=== PATIENT | female | born 1990 | race Asian ===

== ENCOUNTER 2016-08-28 21:17 | Emergency (ER) | payer MEDICAID ==
[~2016-08-28] VITALS: Ht 180.3 cm; Wt 155.0 kg
[~2016-08-28 21:17] MED LIST: CARV-39 PO; CARV6.252 PO; FURO20TA3 PO; LAMO100T PO; METF100P3 PO; METO25TA35 PO; RISP2TAB PO; TRAZ50TA18 PO; ZIPR40CA3 PO
[2016-08-28] MEDS ORDERED: HYDROmorphone 1 MG/ML, 1ML IM ONE (22:30)
[2016-08-28] MEDS ORDERED: KETOROLAC 30 MG/1 ML IM ONE (22:30)
[2016-08-28] MEDS ORDERED: DEXAMETHASONE 4 MG/ML, 1ML PO ONE (22:30)
[2016-08-28] MEDS ORDERED: DEXAMETHASONE 4 MG/ML, 1ML ONE (22:34)
[2016-08-28] MEDS ORDERED: HYDROmorphone 1 MG/ML, 1ML ONE (22:34)
[2016-08-28] MEDS ORDERED: KETOROLAC 30 MG/1 ML ONE (22:34)
[2016-08-29 01:49] VITALS: BP 138/75
== END 2016-08-29 01:51 | disposition home or self-care (01) ==
LOC: ED 21:56
DX: M54.16 Radiculopathy, lumbar region (principal); M79.604 Pain in right leg; E11.9 Type 2 diabetes mellitus without complications; I10 Essential (primary) hypertension; G43.909 Migraine, unspecified, not intractable, without status migrainosus; E66.9 Obesity, unspecified; Z86.73 Personal history of transient ischemic attack (TIA), and cerebral infarction without residual deficits
CPT/HCPCS: 72110; 73502; 96372; 99284; J1100; J1170; J1885

== ENCOUNTER 2016-12-18 19:04 | Emergency (ER) | payer MEDICAID ==
[~2016-12-18] VITALS: Ht 180.3 cm; Wt 152.2 kg
[2016-12-18 19:05] VITALS: BP 174/117
[2016-12-18] MEDS ORDERED: DEXAMETHASONE 4 MG TABLET PO STA (20:46)
[2016-12-18] MEDS ORDERED: DEXAMETHASONE 4 MG TABLET ONE (20:51)
== END 2016-12-18 21:06 | disposition home or self-care (01) ==
LOC: ED 20:45
DX: J02.8 Acute pharyngitis due to other specified organisms (principal); E11.9 Type 2 diabetes mellitus without complications; F17.210 Nicotine dependence, cigarettes, uncomplicated; F20.0 Paranoid schizophrenia; F43.10 Post-traumatic stress disorder, unspecified; F79 Unspecified intellectual disabilities; I10 Essential (primary) hypertension; M19.90 Unspecified osteoarthritis, unspecified site; Z86.73 Personal history of transient ischemic attack (TIA), and cerebral infarction without residual deficits
CPT/HCPCS: 71020; 99284

== ENCOUNTER 2017-01-09 18:59 | Emergency (ER) | payer MEDICAID ==
[~2017-01-09] VITALS: Ht 180.3 cm; Wt 153.6 kg
[2017-01-09 19:01] VITALS: BP 186/114
== END 2017-01-09 20:17 | disposition home or self-care (01) ==
LOC: ED 20:11
DX: S20.211A Contusion of right front wall of thorax, initial encounter (principal); S50.01XA Contusion of right elbow, initial encounter; F31.9 Bipolar disorder, unspecified; W01.0XXA Fall on same level from slipping, tripping and stumbling without subsequent striking against object, initial encounter; Y93.89 Activity, other specified; Y92.098 Other place in other non-institutional residence as the place of occurrence of the external cause; Y99.8 Other external cause status
CPT/HCPCS: 99284

== ENCOUNTER 2017-01-23 13:24 | Emergency (ER) | payer MEDICAID ==
[~2017-01-23] VITALS: Ht 180.3 cm; Wt 152.6 kg
[2017-01-23] MEDS ORDERED: CARV-39 PO (14:01)
[2017-01-23 14:24] LABS: HEMATOCRIT 43.4 % (34.6-47.8); HEMOGLOBIN 14.4 g/dL (11.7-16.4)
[2017-01-23 14:33] LABS: BLOOD UREA NITROGEN 10 mg/dL (7-18)
[2017-01-23 14:39] LABS: IS PT STATUS REG ER OR PRE ER? YES
[2017-01-23 14:42] VITALS: BP 135/78
== END 2017-01-23 14:52 | disposition home or self-care (01) ==
LOC: ED 14:26
DX: R06.00 Dyspnea, unspecified (principal); E11.9 Type 2 diabetes mellitus without complications; I10 Essential (primary) hypertension; G43.909 Migraine, unspecified, not intractable, without status migrainosus; F43.10 Post-traumatic stress disorder, unspecified
CPT/HCPCS: 36415; 71010; 80048; 82040; 83880; 84484; 85025; 93005; 99285

== ENCOUNTER 2017-01-31 11:26 | Emergency (ER) | payer MEDICAID ==
[~2017-01-31] VITALS: Ht 180.3 cm; Wt 145.5 kg
[2017-01-31] MEDS ORDERED: GABA300C10 PO (11:37)
[2017-01-31 11:57] LABS: HEMATOCRIT 42.6 % (34.6-47.8); HEMOGLOBIN 14.5 g/dL (11.7-16.4); WHITE BLOOD COUNT 12.8 x10^3/uL (3.4-10)
[2017-01-31 12:09] LABS: ASPARTATE AMINO TRANSFERASE 8 U/L (15-37); BLOOD UREA NITROGEN 9 mg/dL (7-18)
[2017-01-31 12:44] VITALS: BP 191/119
== END 2017-01-31 13:55 | disposition home or self-care (01) ==
LOC: ED 13:49
DX: R53.1 Weakness (principal); E11.9 Type 2 diabetes mellitus without complications; I10 Essential (primary) hypertension; Z86.73 Personal history of transient ischemic attack (TIA), and cerebral infarction without residual deficits
CPT/HCPCS: 36415; 70551; 80053; 85025; 93005; 99285

== ENCOUNTER 2017-02-25 16:18 | Emergency (ER) | payer MEDICAID, OTHER ==
[~2017-02-25] VITALS: Ht 180.3 cm; Wt 154.0 kg
[~2017-02-25 16:18] MED LIST changes: +GABA300C10 PO
[2017-02-25 16:23] VITALS: BP 154/108
[2017-02-25 17:10] LABS: RAPID INFLUENZA A Negative (Negative); RAPID INFLUENZA B Negative (Negative)
== END 2017-02-25 17:34 | disposition home or self-care (01) ==
LOC: ED 17:28
DX: J00 Acute nasopharyngitis [common cold] (principal); E11.9 Type 2 diabetes mellitus without complications; I10 Essential (primary) hypertension; G43.909 Migraine, unspecified, not intractable, without status migrainosus; Z86.73 Personal history of transient ischemic attack (TIA), and cerebral infarction without residual deficits
CPT/HCPCS: 71020; 87400; 99285

== ENCOUNTER 2017-02-26 22:01 | Emergency (ER) | payer OTHER ==
[~2017-02-26] VITALS: Ht 180.3 cm; Wt 153.5 kg
[2017-02-27 00:23] VITALS: BP 144/83
== END 2017-02-27 00:26 | disposition home or self-care (01) ==
LOC: ED 23:58
DX: J45.20 Mild intermittent asthma, uncomplicated (principal); I10 Essential (primary) hypertension; M19.90 Unspecified osteoarthritis, unspecified site
CPT/HCPCS: 71010; 93005; 99284

== ENCOUNTER 2017-04-29 15:35 | Emergency (ER) | payer MEDICAID, OTHER ==
[~2017-04-29] VITALS: Ht 180.3 cm; Wt 141.3 kg
[2017-04-29 15:46] VITALS: BP 149/98
== END 2017-04-29 16:12 ==
LOC: ED 16:11
DX: R10.31 Right lower quadrant pain (principal); Z90.49 Acquired absence of other specified parts of digestive tract
CPT/HCPCS: 99281

== ENCOUNTER 2017-04-29 21:15 | Emergency (ER) | payer MEDICAID ==
[~2017-04-29] VITALS: Ht 180.3 cm; Wt 143.2 kg
[2017-04-29 22:21] LABS: HEMATOCRIT 43.9 % (34.6-47.8); HEMOGLOBIN 14.6 g/dL (11.7-16.4); WHITE BLOOD COUNT 13.3 x10^3/uL (3.4-10)
[2017-04-29 22:34] LABS: ASPARTATE AMINO TRANSFERASE 15 U/L (15-37); BLOOD UREA NITROGEN 11 mg/dL (7-18)
[2017-04-29 23:25] LABS: HCG UR LOT HCG7030192
[2017-04-29 23:28] LABS: HCG UR OBC PASS
[2017-04-29] MEDS ORDERED: HYDROcodone/APAP 5/325 TABLET PO ONE (23:30)
[2017-04-29] MEDS ORDERED: HYDROcodone/APAP 5/325 TABLET ONE (23:44)
[2017-04-29 23:51] VITALS: BP 144/76
== END 2017-04-30 01:32 | disposition home or self-care (01) ==
LOC: ED 22:00
DX: O23.41 Unspecified infection of urinary tract in pregnancy, first trimester (principal); Z3A.08 8 weeks gestation of pregnancy; J45.909 Unspecified asthma, uncomplicated; E11.9 Type 2 diabetes mellitus without complications; I10 Essential (primary) hypertension; E28.2 Polycystic ovarian syndrome; F20.0 Paranoid schizophrenia; F43.10 Post-traumatic stress disorder, unspecified; F79 Unspecified intellectual disabilities; M19.90 Unspecified osteoarthritis, unspecified site; Z86.73 Personal history of transient ischemic attack (TIA), and cerebral infarction without residual deficits; Z90.49 Acquired absence of other specified parts of digestive tract
CPT/HCPCS: 36415; 74176; 76856; 80053; 81001; 81025; 85025; 87077; 87086; 87186; 99285

== ENCOUNTER 2017-05-22 11:32 | Emergency (ER) | payer MEDICAID ==
[~2017-05-22] VITALS: Ht 180.3 cm; Wt 135.7 kg
[2017-05-22] MEDS ORDERED: PANTOPRAZOLE 20MG TABLET PO ONE (12:30)
[2017-05-22 12:43] LABS: BASOPHILS # (AUTO) 0.04 x10^3/uL (0-0.1); BASOPHILS % (AUTO) 0 % (0-1); EOSINOPHILS % (AUTO) 2 % (1-7); LYMPHOCYTES # (AUTO) 2.26 x10^3/uL (1-3.4); LYMPHOCYTES % (AUTO) 23 % (22-44); MD NO; MEAN CORPUSCULAR HEMOGLOBIN 27.7 pg (27.0-34.8); MEAN CORPUSCULAR HGB CONC 33.6 g/dL (32.4-35.8); MEAN CORPUSCULAR VOLUME 82.5 fL (80-100); MEAN PLATELET VOLUME 8.2 fL (7.4-10.4); MONOCYTES # (AUTO) 0.59 x10^3/uL (0.2-0.8); MONOCYTES % (AUTO) 6 % (2-9); NEUTROPHILS # (AUTO) 6.83 x10^3/uL (1.8-6.8); NEUTROPHILS % (AUTO) 69 % (42-75); PLATELET COUNT 247 x10^3/uL (130-400); RED BLOOD COUNT 5.38 x10^6/uL (3.82-5.3)
[2017-05-22 12:48] LABS: ALBUMIN 3.8 g/dL (3.4-5.0); ANION GAP 7 mmol/L (5-15); CALCIUM 8.5 mg/dL (8.5-10.1); CHLORIDE 111 mmol/L (98-107)
[2017-05-22 12:51] LABS: ALANINE AMINOTRANSFERASE 30 U/L (12-78); ALKALINE PHOSPHATASE 70 U/L (45-117); BILIRUBIN,TOTAL 0.8 mg/dL (0.2-1.0); CREATININE 0.94 mg/dL (0.55-1.02); TOTAL PROTEIN 7.2 g/dL (6.4-8.2)
[2017-05-22] MEDS ORDERED: FAMOTIDINE 20 MG TABLET ONE (12:54)
[2017-05-22] MEDS ORDERED: PANTOPRAZOLE 20MG TABLET ONE (12:57)
[2017-05-22 13:28] VITALS: BP 155/94
== END 2017-05-22 13:30 | disposition home or self-care (01) ==
LOC: ED 13:20
DX: S83.421A Sprain of lateral collateral ligament of right knee, initial encounter (principal); S83.411A Sprain of medial collateral ligament of right knee, initial encounter; R11.2 Nausea with vomiting, unspecified; F20.0 Paranoid schizophrenia; F31.9 Bipolar disorder, unspecified; E28.2 Polycystic ovarian syndrome; F10.20 Alcohol dependence, uncomplicated; Y08.89XA Assault by other specified means, initial encounter; Y93.89 Activity, other specified; Y99.8 Other external cause status; Y92.89 Other specified places as the place of occurrence of the external cause
CPT/HCPCS: 36415; 80053; 83690; 85025; 99285

== ENCOUNTER 2018-12-19 18:46 | Emergency (ER) | payer MEDICARE, MEDICAID ==
[~2018-12-19] VITALS: Ht 180.3 cm; Wt 147.1 kg
[~2018-12-19 18:46] MED LIST changes: -RISP2TAB PO; +RISP2TAB11 PO; -TRAZ50TA18 PO; +TRAZ50TA66 PO
[2018-12-19 19:16] LABS: BASOPHILS % (AUTO) 1 % (0-1); EOSINOPHILS # (AUTO) 0.23 x10^3/uL (0-0.4); EOSINOPHILS % (AUTO) 2 % (1-7); LYMPHOCYTES # (AUTO) 3.18 x10^3/uL (1-3.4); LYMPHOCYTES % (AUTO) 25 % (22-44); MD NO; MEAN CORPUSCULAR HEMOGLOBIN 28.4 pg (27.0-34.8); MEAN CORPUSCULAR HGB CONC 33.2 g/dL (32.4-35.8); MEAN CORPUSCULAR VOLUME 85.6 fL (80-100); MEAN PLATELET VOLUME 7.7 fL (7.4-10.4); MONOCYTES # (AUTO) 0.48 x10^3/uL (0.2-0.8); MONOCYTES % (AUTO) 4 % (2-9); NEUTROPHILS # (AUTO) 8.82 x10^3/uL (1.8-6.8); NEUTROPHILS % (AUTO) 69 % (42-75); PLATELET COUNT 316 x10^3/uL (130-400); RED BLOOD COUNT 5.39 x10^6/uL (3.82-5.3); RED CELL DISTRIBUTION WIDTH 13.3 % (9.6-15.2)
[2018-12-19 19:28] LABS: ALANINE AMINOTRANSFERASE 31 U/L (12-78); ALBUMIN 3.8 g/dL (3.4-5.0); ANION GAP 6 mmol/L (5-15); CALCIUM 8.8 mg/dL (8.5-10.1); CHLORIDE 108 mmol/L (98-107); CREATININE 0.97 mg/dL (0.55-1.02)
[2018-12-19 19:33] LABS: ALKALINE PHOSPHATASE 78 U/L (45-117); BILIRUBIN,TOTAL 0.5 mg/dL (0.2-1.0); TOTAL PROTEIN 7.7 g/dL (6.4-8.2)
--- NOTE | 2018-12-19 19:53 | NUR ---
pt to room from lobby
--- NOTE | 2018-12-19 20:18 | NUR ---
Pt c/o generalized lower abdominal cramping and discomfort x 3 days, deneis n/v/d, states total hystorectomy,. Pt denies vaginal bleeding but reports hematuria today. pt also denies pain with urination or trauma. up self to BR for urine specimen. Ambulates w/ steady gait, slight limp, states pain to right knee s/p GLF this afternoon on the way to ER. Tolerates weight and ROM, no deformity noted. Family at bedside.
[2018-12-19 20:46] LABS: MICROSCOPIC AUTO
[2018-12-19 20:51] LABS: CULTURE INDICATED? NO
--- NOTE | 2018-12-19 21:32 | NUR ---
Pt ambulates in [place] w/ steady gait, requests MD grace notified, waiting for CT.
[2018-12-19] MEDS ORDERED: HYDROcodone/APAP 5/325 TABLET ONE (21:35)
[2018-12-19 21:38] VITALS: BP 134/66
--- NOTE | 2018-12-19 21:38 | NUR ---
Pt medicated for pain per MD orders, vitals stable.
[2018-12-19] MEDS ORDERED: HYDROcodone/APAP 5/325 TABLET PO ONE (22:00)
[2018-12-19] MEDS ORDERED: ACETAMINOPHEN 325 MG TABLET PO ONE (22:00)
== END 2018-12-19 22:48 | disposition home or self-care (01) ==
LOC: ED 22:12
DX: N23 Unspecified renal colic (principal); R31.0 Gross hematuria
CPT/HCPCS: 36415; 74176; 80053; 81001; 83690; 84703; 85025; 99284